=== PATIENT | male | born 1985 | race Hispanic/Latino ===

== ENCOUNTER 2024-07-11 17:57 | Emergency (ER) | payer BC ==
[~2024-07-11] VITALS: Ht 167.6 cm; Wt 86.2 kg
[2024-07-11 18:00] VITALS: BP 156/115; PULSE 91; RESP 20; TEMP 97.8
[2024-07-11] MEDS: FLUORESCEIN SODIUM 1 STRIP STRIP OP SCH (19:30)
[2024-07-11] MEDS: TETRACAINE HCL 0.5% 4 ML OPHTH SOLN OP STA (20:08)
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
[2024-07-11] MEDS: TobRAMYCin/DEXAmethASONE OPTH SUSP 2.5 ML BOT OD STA (20:14)
[2024-07-11] MEDS: acetaMINOPHEN 500 MG TABLET PO STA (20:14)
[2024-07-11] MEDS ORDERED: HYDROcodone/APAP 5/325 1 TAB TABLET PO STA (20:19)
== END 2024-07-11 20:19 | disposition home or self-care (01) ==
LOC: EDH 17:57
DX: H57.10 Ocular pain, unspecified eye (principal)
CPT/HCPCS: 99283

== ENCOUNTER 2024-12-14 09:30 | Emergency (ER) | payer BC ==
[~2024-12-14] VITALS: Ht 167.6 cm; Wt 72.6 kg
--- NOTE | 2024-12-14 09:54 | ERN ---
General Chief Complaint: Upper Extremity Pain/Injury Stated Complaint: ELBOW INJURY Time Seen by MD: 09:39 History of Present Illness Initial Comments 39-year-old male presents for left elbow swelling. He had a traumatic injury to left elbow where he banged the elbow against a steel with his body weight. He reported immediate swelling. He does have decreased range of motion due to the pain, but he is neurovascularly intact distally. He is able to pronate and supinate the forearm and able to flex and extend the elbow. There is swelling to the olecranon process area. Allergies: Coded Allergies: No Known Drug Allergies (Unverified Allergy, Unknown, 07/11/24) Home Meds Active Scripts Meloxicam (Meloxicam) 15 Mg Tablet, 15 MG PO DAILY PRN for PAIN for 14 Days, #14 TAB Prov:DISHA ARROYO 12/14/24 Past Medical History Past Medical History: Hypertension Past Surgical History: None Surgical History Other: WRIST SX ROS Dictation CONSTITUTIONAL: No chills, no fever, no weakness, no diaphoresis, no malaise. HEAD/FACE: No signs of trauma. EENT: No eye pain, no blurred vision, no tearing, no double vision, no ear pain, no ear discharge, no nose pain, no nasal congestion, no throat pain, no throat swelling, no mouth pain. RESPIRATORY: No cough, no orthopnea, no SOB, no stridor, no wheezing. CARDIOVASCULAR: No chest pain, no edema, no palpitations, no syncope. GASTROINTESTINAL/ABDOMINAL: No abdominal pain, no constipation, no diarrhea, no nausea, no vomiting. GENITOURINARY: No abnormal discharge, no dysuria, no frequent urination, no hematuria. No complaints of pain in the genitals. MUSCULOSKELETAL: Left elbow pain INTEGUMENTARY: No change in color, no change in hair/nails, no dryness, no lesion, no lumps, no rash. NEUROLOGICAL/PSYCH: No anxiety, not depressed, no emotional problem, no headache, no numbness, no pre-existing deficit, no history of seizures, no tremors, no weakness. HEMATOLOGIC/LYMPHATIC: Not anemic, no history of blood clots, no apparent bleeding, no bruising, glands not swollen. All Systems Negative, Except as Noted. Physical Exam Physical Exam Dictation VITAL SIGNS: Reviewed. GENERAL APPEARANCE: Alert, oriented x3, no acute distress, obese. HEAD AND FACE: Non-traumatic. EYES: PERRL, pink conjunctivas, eyelid no trauma, anterior chamber clear. EARS: Pinnas intact and no signs of trauma or erythema. Ear canals clear and no discharge. TMs no erythema. NOSE: No discharge, no bleeding. OROPHARYNX: Mouth normal, teeth no caries, tongue pink. Pharynx clear, no erythema. Tonsils no exudates, no abscesses noted. Mucous membrane moist. NECK: Supple, non-tender, no thyromegaly, no masses, no JVD, no bruits. BREAST: Deferred. CHEST: No tenderness, no crepitus, no paradoxical movement, no retractions. LUNGS: Clear, well-ventilated, symmetric, no rales, no wheezing, no rhonchi, no stridor, good breath sounds bilaterally. HEART: Regular rate, regular rhythm, no murmur, no gallops. VASCULAR: No peripheral edema. ABDOMEN: Soft, positive bowel sounds, nondistended, no guarding, nontender, no rebound, no masses no hepatomegaly, no splenomegaly, no Buchanan's sign, no cody ias. RECTAL: Deferred. GENITAL: Deferred. NEUROLOGICAL: Normal speech, gross motor function intact, gross sensory function intact. MUSCULOSKELETAL: Swelling to the left olecranon process area EXTREMITIES: Nontender, full range of motion. SKIN: Color pink, dry, no turgor, no rash, no lacerations, no abrasions, no contusions. LYMPHATICS: Deferred. MDM CC: L elbow pain Historian: Patient Comorbidities: Hypertension Limitations by social determinants of health: None Differential diagnosis: MSK pain, traumatic bursitis, fracture, effusion, radial head fracture, other Your vital signs are stable Left elbow x-ray (independently ordered and interpreted by me): Some soft tissue swelling but no obvious fractures. Treatment in ED: IM Toradol Plan: We will DC with meloxicam, recommend RICE and PCP follow up. ED Course Orders Procedure Category Date Status Time Elbow Comp 3+Vws Lt RAD 12/14/24 Resulted 09:42 Ketorolac PHA 12/14/24 Complete Tromethamine 15mg/Ml 10:00 Current Medications Medications (Trade) Dose Ordered Sig/Oneil Route PRN Reason Start Time Stop Time Status Last Admin Dose Admin Ketorolac Tromethamine (toRADol) 15 mg ONCE ONCE IM 6/13/25 10:00 12/14/24 10:01 DC 12/14/24 09:55 Vital Signs Date Time Temp Pulse Resp B/P (MAP) Pulse Ox O2 Delivery O2 Flow Rate FiO2 12/14/24 09:32 97.9 93 18 134/89 98 Room Air 0 DX & DISP Disposition: Discharge Departure Impression: Primary Impression: Traumatic bursitis Additional Impression: Injury of elbow, left Condition: Stable Scripts Meloxicam (Meloxicam) 15 Mg Tablet 15 MG PO DAILY PRN for PAIN for 14 Days, #14 TAB Prov: DISHA ARROYO DO 12/14/24 Additional Instructions: As we discussed, your symptoms are most consistent with traumatic bursitis of your elbow. This is inflammation of the bursa of the elbow. Your x-ray does not show any bony abnormalities. I recommend he apply ice for 15-20 minutes at least three to 4 times a day for the next few days. Wear a soft wrap or compression device to reduce swelling and protect the area. I have prescribed meloxicam, which is a nonsteroidal anti-inflammatory pain medication. You can take this once per day. You can also take 1000 mg of Tylenol up to 4 times a day. This medication is [id number]. Please return to the emergency department as needed. Please follow up with the primary doctor in 1-2 weeks if your symptoms do not improve. Referrals: JAIRO SOLOMON MD (PCP) DISHA ARROYO DO Dec 14, 2024 09:54
[2024-12-14] MEDS: ketOROlac 15MG/ML VIAL (15MG/ML) IM ONE (09:55)
--- NOTE | 2024-12-14 10:36 | HMCIMG ---
Elbow AP and lateral, right Clinical Information: injury Comparison: None Findings: There is significant osteophytosis of the olecranon process, with overlying soft tissue swelling consistent with olecranon bursitis. The rest of the elbow joint is preserved. The fat pads are not elevated. There is no evidence of joint effusion or hemarthrosis. There are no fractures. No blastic or lytic lesions are seen. The rest of the soft tissues the soft tissues are present. There is adequate alignment. Impression: Olecranon bursitis.
[2024-12-14] MEDS ORDERED: MELO-108 PO (10:37)
[2024-12-14 10:46] VITALS: BP 127/85; PULSE 85; RESP 18; TEMP 97.9; O2SAT 98
== END 2024-12-14 10:48 | disposition home or self-care (01) ==
LOC: EDH 09:30
DX: S59.902A Unspecified injury of left elbow, initial encounter (principal); M70.22 Olecranon bursitis, left elbow; I10 Essential (primary) hypertension; W22.8XXA Striking against or struck by other objects, initial encounter; Y93.89 Activity, other specified; Y92.89 Other specified places as the place of occurrence of the external cause; Y99.8 Other external cause status
CPT/HCPCS: 99284; 73080; 96372; J1885

== ENCOUNTER 2025-02-25 12:39 | Emergency (ER) | payer BC ==
[~2025-02-25] VITALS: Ht 167.6 cm; Wt 65.8 kg
[~2025-02-25 12:39] MED LIST: MELO-108 PO
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
[2025-02-25 13:46] VITALS: BP 134/91; PULSE 83; RESP 16; TEMP 97.5; O2SAT 99
[2025-02-25] MEDS: CYCLOBENZAPRINE HCL 10 MG TABLET PO ONE (13:46)
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
[2025-02-25] MEDS ORDERED: IBUP-2077 PO (14:31)
[2025-02-25] MEDS ORDERED: CYCL-309 PO (14:31)
== END 2025-02-25 14:37 | disposition home or self-care (01) ==
LOC: EDH 12:39
DX: S29.012A Strain of muscle and tendon of back wall of thorax, initial encounter (principal); S16.1XXA Strain of muscle, fascia and tendon at neck level, initial encounter; I10 Essential (primary) hypertension; V89.2XXA Person injured in unspecified motor-vehicle accident, traffic, initial encounter; Y93.89 Activity, other specified; Y92.488 Other paved roadways as the place of occurrence of the external cause; Y99.8 Other external cause status
CPT/HCPCS: 72040; 72070; 99283

== ENCOUNTER 2025-05-27 23:03 | Emergency (ER) | payer BC, OTHER ==
[~2025-05-27] VITALS: Ht 167.6 cm; Wt 68.0 kg
[~2025-05-27 23:03] MED LIST changes: +CYCL-309 PO; +IBUP-2077 PO
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
[2025-05-27] MEDS ORDERED: AMOX-426 PO (23:36)
--- NOTE | 2025-05-27 23:38 | ERN ---
ED Note History of Present Illness Stated Complaint: C/O DOG BITE TO RIGHT HAND Chief Complaint: Animal Bite Time Seen by MD: 23:08 Dictation: This is a 39-year-old male who presented to the emergency room for evaluation of a dog bite that happened less than an hour to 2 hours. Patient stated that his seen this stray dog for many months and he stated that he was on the road talking to someone when 2 dogs approached him and as he was trying to shy away the left-sided dog the right sided dog bit him on his right hand thenar eminence as well as outside on the dorsum. He had bleeding and swelling at the base of the thumb and because of the pain and discomfort patient came to the ED for further evaluation he stated that he washed the wound with chlorhexidine soap and water. No redness no paresthesias no difficulty in moving the fingers or hand. No fever chills. The dog's vaccination status is not known. Patient later indicated that he had tetanus shot last year Temperature 98.4 pulse 81 respirations 20 blood pressure 170/91 with a pulse oximetry of 100% on room air Patient has a known history of hypertension he is currently not taking any medications Allergies: Coded Allergies: No Known Drug Allergies (Unverified Allergy, Unknown, 07/11/24) Home Meds Active Scripts Amoxicillin/Potassium Clav (Augmentin 500-125 Tablet) 500 Mg-125 Mg Tablet, 1 TAB PO BID for 10 Days, #20 TAB 0 Refills Prov:ELIZABETH ROTH MD 05/27/25 Ibuprofen (Ibuprofen 800 mg Tab) 800 Mg Tab, 800 MG PO Q8H PRN for fever or pain, #30 TAB 0 Refills Prov:NAHID ATNG 02/25/25 Cyclobenzaprine HCl (Cyclobenzaprine HCl) 10 Mg Tablet, 1 TAB PO TID for muscle spasms for 10 Days, #30 TAB 0 Refills Prov:NAHID TANG 02/25/25 Meloxicam (Meloxicam) 15 Mg Tablet, 15 MG PO DAILY PRN for PAIN for 14 Days, #14 TAB Prov:DISHA ARROYO DO 12/14/24 Past Medical History Past Medical History: Hypertension Surgical History: None Surgical History Other: WRIST SX Family History: Negative Social History: Negative RN Note Reviewed/Agreed w/PFSH: Yes Review of System Dictation Constitutional: Negative for fever,chills, and weight loss Eyes: Negative for injury, pain,redness, and discharge ENT: Negative for injury,pain or swelling Cardiovascular: Negative for chest pain, palpitations, and edema Respiratory: Negative for shortness of breath, cough, and wheezing, Abdomen/GI: Negative for abdominal pain, nausea, vomiting, diarrhea, and constipation Back: Negative for injury and pain : Negative for injury, bleeding and discharge MS/Extremity: Negative for injury and deformity positive for a dog bite on the dorsum of the right hand as well as thenar eminence at the base of the thumb Skin: Negative for rash, and discoloration Neuro: Negative for headache, weakness, numbness, tingling, and seizure Psych: Negative for suicide ideation, homicidal ideation, and hallucinations Initial Vital Sign VS Vital Signs Date Time Temp Pulse Resp B/P (MAP) Pulse Ox O2 Delivery O2 Flow Rate FiO2 05/27/25 23:06 98.4 81 20 170/91 100 Room Air 05/28/25 01:16 0 21 Physical Exam Dictation General: awake, alert, NAD Head/Face: Normocephalic, atraumatic Eyes: PERRL, EOMI, vision at baseline ENT: oral cavity clear, TMs clear, no signs of infection Neck: Trachea midline, supple, no nuchal rigidity Cardiovascular: RRR, normal S1/S2, No MRGs, no JVD Respiratory: CTAB, no respiratory distress, No rales or wheezes Abdomen: Soft, non-tender, non-distended, normal bowel sounds, no guarding or rebound. Skin: Warm, dry, normal turgor, no rash tattoos all over. L-shaped laceration on the thenar eminence of the right hand about 2.5 cm by 2.5 cm. Swelling of the surrounding tissue and tenderness. MS/Extremity: Pulses equal, no cyanosis, neurovascular intact, FROM Neuro: COAx4, GCS 15, strength 5/5, CN 2-12 intact, normal cerebellar exam, normal gait, Psych: Normal behavior, mood, and affect normal Extremities-trace edema without any palpable cords, Homans sign is negative Results (Laboratory/Radiology) Labs Reviewed?: Yes X-RAY Comment: REASON: dog bite with laceration and thenar swelling hematoma ORDERING PHYSICIAN: ELIZABETH ROTH MD PROCEDURE: HAND 2V RT - HAND 2+VWS RT LIMITED EXAM: CR right Hand, 2 views. CLINICAL HISTORY: Dog bite with laceration and thenar swelling hematoma COMPARISON: None provided. FINDINGS: BONES: Suspicion of a small nondisplaced fracture at the base of the fifth digit proximal phalanx in the ulnar aspect. JOINTS: No evidence of dislocation. The joint spaces are normal. SOFT TISSUES: Soft tissue swelling in the hand, predominantly in the thenar aspect. No radiopaque foreign body is seen. IMPRESSION: Suspicion of a small nondisplaced fracture at the base of the fifth digit proximal phalanx in the ulnar aspect. Clinical correlation and further evaluation with CT of the right hand are recommended. Soft tissue swelling in the hand, predominantly in the thenar aspect. /[place] DICTATED BY: TYLER CORONADO Jr., MD DATE: 05/28/25134 ELECTRONICALLY SIGNED BY: TYLER CORONADO Jr., MD DATE: 05/28/25134 ED Course ED Course Orders Procedure Category Date Status Time Tetanus,Diphtheria PHA 05/27/25 Complete Tox [Adult] (Diphther 23:30 Ketorolac PHA 05/27/25 Complete Tromethamine 30mg/Ml 23:30 Amox/Clav 875/125mg PHA 05/27/25 Complete Tab (Augmentin 875-1 23:30 Hand 2+Vws Rt Limited RAD 05/27/25 Resulted 23:31 Current Medications Medications (Trade) Dose Ordered Sig/Oneil Route PRN Reason Start Time Stop Time Status Last Admin Dose Admin Amoxicillin/ Clavulanate Potassium (Augmentin 875-125 Tablet) 1 each ONCE ONCE PO 05/27/25 23:30 05/28/25 00:02 DC 05/28/25 00:29 Ketorolac Tromethamine (toRADol) 30 mg ONCE ONCE IM 05/27/25 23:30 05/28/25 00:02 DC 05/28/25 00:41 Tetanus/ Diphtheria Toxoids Adsorbed (DiphthERIA-teTANUS TOXOID [ADULT]/ DECAVAC) 0.5 ml ONCE ONCE IM 05/27/25 23:30 05/27/25 23:31 DC Vital Signs Date Time Temp Pulse Resp B/P (MAP) Pulse Ox O2 Delivery O2 Flow Rate FiO2 05/28/25 01:16 98.4 78 18 128/76 98 Room Air* 0 21 05/27/25 23:06 98.4 81 20 170/91 100 Room Air We will administer medications according to the patient's complaint. Medical Decision Making MDM Differential diagnosis: Cellulitis, abscess, osteomyelitis, sepsis, non infectious trauma related fractures injuries. This is a 39-year-old male who presented to the emergency room for evaluation of a dog bite that happened less than an hour to 2 hours. Patient stated that his seen this stray dog for many months and he stated that he was on the road talking to someone when 2 dogs approached him and as he was trying to shy away the left-sided dog the right sided dog bit him on his right hand thenar eminence as well as outside on the dorsum. He had bleeding and swelling at the base of the thumb and because of the pain and discomfort patient came to the ED for further evaluation he stated that he washed the wound with chlorhexidine soap and water. No redness no paresthesias no difficulty in moving the fingers or hand. No fever chills. The dog's vaccination status is not known. Patient later indicated that he had tetanus shot last year Temperature 98.4 pulse 81 respirations 20 blood pressure 170/91 with a pulse oximetry of 100% on room air Patient has a known history of hypertension he is currently not taking any medications The wound was thoroughly cleansed again and there was a small laceration L- shaped in the thenar eminence of the right hand. Patient refused any lamberto or suturing stated that just with the dressing it would heal on its own A dose of Augmentin was also given. Extensive dressing was done for the right hand and patient will be discharged to home on Augmentin to cover for any infections related to the dog bite like pasteurella I went over the x-ray results of the right hand which per Radiology showed a suspicion for a possible nondisplaced fracture of the proximal phalanx at the base of the 5th finger Patient verbalized understanding. Rationale: Tests considered and ordered secondary to shared decision making include: None Previous outside records reviewed: Old ER visits. Risk of complication and/or morbidity or mortality of patient management: None Medications-Per medication reconciliation Need for hospitalization: Patient does not meet criteria for hospitalization. Need for emergency major/minor surgery: No There are no social concerns with this patient. Prescription drug management Prescriptions will include symptomatic care Patient's prior external medical records from other ER visits were reviewed by me as indicated. Prior testing and results from previous visits were reviewed. Prior tests were taken into account with medical decision making and resource utilization, independent historian/historians were used to obtain complete medical history. I independently interpreted the test that were performed, results were reviewed by me and considered findings on radiology if ordered. Medical management and examination interpretation discussions were had by me with other qualified healthcare professionals as indicated for the patient's care. Problem List Problem List: (1) Dog bite of right hand (2) Laceration of hand, right DX & DISP Disposition: Discharge Departure Impression: Primary Impression: Dog bite of right hand Additional Impression: Laceration of hand, right Condition: Stable Scripts Amoxicillin/Potassium Clav (Augmentin 500-125 Tablet) 500 Mg-125 Mg Tablet 1 TAB PO BID for 10 Days, #20 TAB 0 Refills Prov: ELIZABETH ROTH MD 05/27/25 Additional Instructions: Patient and the caregiver have been informed of all the diagnostic tests and the imaging conducted during the today's visit to the emergency room and has verbalized understanding of the results I have personally reviewed and interpreted all diagnostic exams performed here in the ER today as well as the vital signs documented by the nursing staff. The patient is now being discharged to home and should follow up with the primary care physician or the specialist as directed by the ER staff. Referrals: SELF,REFERRAL (PCP) ELIZABETH ROTH MD May 27, 2025 23:38
[2025-05-28] MEDS: AMOX/CLAV 875/125MG TAB PO ONE (00:29)
--- NOTE | 2025-05-28 00:36 | HMCIMG ---
EXAM: CR right Hand, 2 views. CLINICAL HISTORY: Dog bite with laceration and thenar swelling hematoma COMPARISON: None provided. FINDINGS: BONES: Suspicion of a small nondisplaced fracture at the base of the fifth digit proximal phalanx in the ulnar aspect. JOINTS: No evidence of dislocation. The joint spaces are normal. SOFT TISSUES: Soft tissue swelling in the hand, predominantly in the thenar aspect. No radiopaque foreign body is seen. IMPRESSION: Suspicion of a small nondisplaced fracture at the base of the fifth digit proximal phalanx in the ulnar aspect. Clinical correlation and further evaluation with CT of the right hand are recommended. Soft tissue swelling in the hand, predominantly in the thenar aspect. /Daniel
--- NOTE | 2025-05-28 00:42 | NUR ---
IRRIGATED RIGHT HAD DOG BITE WITH SKINTEGRITY, DRIED, DRESSED WITH NONADHISIVE PAD, GAUZE AND WRAPPED WITH KERLIX.
[2025-05-28 01:16] VITALS: BP 128/76; PULSE 78; RESP 18; TEMP 98.4; O2SAT 98
== END 2025-05-28 01:25 | disposition home or self-care (01) ==
LOC: EDH 23:03
DX: S61.411A Laceration without foreign body of right hand, initial encounter (principal); I10 Essential (primary) hypertension; W54.0XXA Bitten by dog, initial encounter; Y93.89 Activity, other specified; Y92.89 Other specified places as the place of occurrence of the external cause; Y99.8 Other external cause status
CPT/HCPCS: 99284; 73120; 96372; J1885